=== PATIENT | female | born 1935 | race Caucasian/White ===

== ENCOUNTER 2021-12-14 13:26 | Emergency (ER) | payer MEDICARE, BC ==
[~2021-12-14] VITALS: Ht 160 cm; Wt 63.5 kg
[2021-12-14] MEDS ORDERED: ACETAMINOPHEN 325 MG TABLET PO ONE (13:30)
--- NOTE | 2021-12-14 14:24 | NUR ---
DR MARQUEZ AT BEDSIDE FOR REEVALUATION. PT REMAINS AWAKE AND ALERT.
[2021-12-14] MEDS ORDERED: ACETAMINOPHEN 325 MG TABLET ONE (14:27)
--- NOTE | 2021-12-14 14:29 | NUR ---
PT MADICATED FOR PAIN PER MD ORDER.
--- NOTE | 2021-12-14 16:04 | NUR ---
PT HAS DECIDED TO GO AGAINST MEDICAL ADVICE AT THIS TIME; HAS BEEN WAITING FOR CT SCAN RESULT BUT IS NOW UNWILLING TO, AND INSISTED TO LEAVE,AND BE CALLED INSTEAD IF ANYTHING SERIOUS COMES UP. DR MARQUEZ SPOKE WITH PATIENT DIRECTLY RE IMPLICATION OF LIVING AGAINST MEDICAL ADVISE. PT AMBULATING WITHOUT DIFFICULTY.
[2021-12-14 16:06] VITALS: BP 140/77
== END 2021-12-14 15:45 | disposition left against medical advice (07) ==
LOC: ER 13:26
DX: M54.50 Low back pain, unspecified (principal); N63.0 Unspecified lump in unspecified breast; Z91.018 Allergy to other foods; I10 Essential (primary) hypertension; Z91.81 History of falling
CPT/HCPCS: A4663

== ENCOUNTER 2024-02-25 22:52 | Inpatient (IN) | payer MEDICARE, BC ==
[~2024-02-25] VITALS: Ht 162.6 cm; Wt 56.7 kg
[2024-02-25 23:35] LABS: BASOPHILS % (AUTO) 0.2 % (0.0-2.0); HEMATOCRIT 37.1 % (31.2-41.9); HEMOGLOBIN 12.4 g/dL (10.9-14.3); LYMPHOCYTES # (AUTO) 0.5 K/uL (0.8-4.8); LYMPHOCYTES % (AUTO) 3.6 % (20.5-51.5); MEAN CORPUSCULAR HEMOGLOBIN 30.1 uug (24.7-32.8); MEAN CORPUSCULAR HGB CONC 34 g/dL (32.3-35.6); MEAN CORPUSCULAR VOLUME 89.9 fL (75.5-95.3); MONOCYTES # (AUTO) 0.8 K/uL (0.1-1.30); MONOCYTES % (AUTO) 5.8 % (0.0-11.0); NEUTROPHILS # (AUTO) 12.1 K/uL (1.8-8.9); NEUTROPHILS % (AUTO) 90.4 % (38.5-71.5); PLATELET COUNT (AUTO) 230 K/uL (179-408); RED BLOOD CELL COUNT(AUTO) 4.13 MIL/uL (3.63-4.92); RED CELL DISTRIBUTION WIDTH 14.6 % (12.3-17.7); WHITE BLOOD COUNT (AUTO) 13.4 K/uL (3.8-11.8)
[2024-02-25] MEDS: IV NORMAL SALINE 1000 ML BAG IV ONE (23:35)
[2024-02-26] LABS: ALANINE AMINOTRANSFERASE 39 U/L (14-59); ALBUMIN 2.9 g/dL (3.4-5.0); ALKALINE PHOSPHATASE 71 U/L (50-136); ASPARTATE AMINOTRANSFERASE 56 U/L (15-37); BILIRUBIN,TOTAL 0.8 mg/dL (0.2-1.0); CARBON DIOXIDE 29 mmol/L (21-32); CHLORIDE 97 mmol/L (98-107); CREATINE KINASE, TOTAL 1288 U/L (26-192); CREATININE 0.7 mg/dL (0.6-1.3); GLUCOSE 126 mg/dL (74-106); POTASSIUM 3.7 mmol/L (3.5-5.1); SODIUM SERUM 133 mmol/L (136-145); TOTAL PROTEIN, SERUM 6.9 g/dL (6.4-8.2); UREA NITROGEN, BLOOD 23 mg/dL (7-18)
[2024-02-26] MEDS ORDERED: IV NORMAL SALINE 250 ML IV ONE (00:59)
[2024-02-26] MEDS ORDERED: SWABABLE VALVE TRANSFER SET EA MC ONE (00:59)
[2024-02-26] MEDS ORDERED: IOHEXOL 350 100 ML INFUS..BTL ONE (01:01)
[2024-02-26] MEDS ORDERED: NITROGLYCERIN OINT 1 GM PACKET TP ONE (01:09)
[2024-02-26] MEDS ORDERED: ASPIRIN 81 MG TAB.CHEW ONE (01:09)
[2024-02-26] MEDS: NITROGLYCERIN OINT 1 GM PACKET TP ONE (01:15)
[2024-02-26] MEDS: ASPIRIN 81 MG TAB.CHEW PO ONE (01:25)
[2024-02-26] MEDS ORDERED: METOPROLOL TARTRATE 5 MG/5 ML VIAL IVP ONE (02:42)
[2024-02-26] MEDS: METOPROLOL TARTRATE 5 MG/5 ML VIAL IVP ONE ×2 (02:45→03:52)
[2024-02-26] MEDS ORDERED: MECO10005 PO (02:57)
[2024-02-26] MEDS ORDERED: CELE100C PO (02:57)
[2024-02-26] MEDS ORDERED: LISI10TA29 PO (02:57)
[2024-02-26] MEDS ORDERED: PRIM50TA27 PO (02:57)
[2024-02-26] MEDS ORDERED: GABA600T12 PO (02:57)
[2024-02-26] MEDS ORDERED: METO-357 PO (02:57)
[2024-02-26] MEDS ORDERED: ROSU10TA2 PO (02:57)
[2024-02-26] MEDS ORDERED: ACETAMINOPHEN 325 MG TABLET PO PRN (03:00)
[2024-02-26] MEDS ORDERED: ONDANSETRON 4 MG/2 ML VIAL IV PRN (03:00)
[2024-02-26] MEDS ORDERED: MAGNESIUM HYDROXIDE 30 ML LIQUID UDC PO PRN (03:00)
[2024-02-26] MEDS ORDERED: REMEDY ESSENTIAL ZINC PASTE 113 GM TP PRN (03:00)
[2024-02-26 03:25] LABS: *BILIRUBIN,URIN NEGATIVE (NEGATIVE); *BLOOD, URINE 2+ (NEGATIVE); *CLARITY,URINE CLEAR (CLEAR); *COLOR,URINE DARK YELLOW (YELLOW); *PROTEIN,URINE NEGATIVE (NEGATIVE); UGLUCOSE NEGATIVE (NEGATIVE)
[2024-02-26 03:26] LABS: *KETONES,URINE 2+ (NEGATIVE); LEUKOCYTE ESTERASE ,URINE NEGATIVE (NEGATIVE); NITRITE, URINE NEGATIVE (NEGATIVE)
[2024-02-26 03:29] LABS: BACTERIA,URINE FEW /HPF (NONE SEEN); SQUAMOUS EPITHELIAL CELL,UR FEW /HPF (NONE SEEN); WBC,URINE NONE SEEN /HPF (0-3)
[2024-02-26 03:30] LABS: MUCUS,URINE FEW /LPF (0-FEW); TRICHOMONAS,URINE NONE SEEN /HPF (NONE SEEN); YEAST,URINE NONE SEEN /HPF (NONE SEEN)
[2024-02-26 05:56] VITALS: BP 151/76; TEMP 98; O2SAT 100
[2024-02-26 07:24] VITALS: BP 153/100; TEMP 98.1; O2SAT 96
[2024-02-26 07:34] LABS: BASOPHILS % (AUTO) 0.4 % (0.0-2.0); HEMATOCRIT 33.2 % (31.2-41.9); HEMOGLOBIN 11.5 g/dL (10.9-14.3); LYMPHOCYTES # (AUTO) 1.1 K/uL (0.8-4.8); MEAN CORPUSCULAR HEMOGLOBIN 30.9 uug (24.7-32.8); MEAN CORPUSCULAR HGB CONC 35 g/dL (32.3-35.6); MEAN CORPUSCULAR VOLUME 89.6 fL (75.5-95.3); MONOCYTES # (AUTO) 0.9 K/uL (0.1-1.30); MONOCYTES % (AUTO) 9.1 % (0.0-11.0); NEUTROPHILS # (AUTO) 7.7 K/uL (1.8-8.9); NEUTROPHILS % (AUTO) 79.5 % (38.5-71.5); PLATELET COUNT (AUTO) 221 K/uL (179-408); RED CELL DISTRIBUTION WIDTH 14.4 % (12.3-17.7); WHITE BLOOD COUNT (AUTO) 9.7 K/uL (3.8-11.8)
[2024-02-26 07:54] LABS: MAGNESIUM 1.4 mg/dL (1.8-2.4); PHOSPHOROUS 3.3 mg/dL (2.5-4.9)
[2024-02-26 08:01] LABS: DIFFERENTIAL COMMENT 1
[2024-02-26 08:04] LABS: CALCIUM 8.5 mg/dL (8.5-10.1); CARBON DIOXIDE 29 mmol/L (21-32); CHLORIDE 100 mmol/L (98-107); CREATINE KINASE, TOTAL 1188 U/L (26-192); CREATININE 0.5 mg/dL (0.6-1.3); GLUCOSE 105 mg/dL (74-106); POTASSIUM 3.5 mmol/L (3.5-5.1); SODIUM SERUM 135 mmol/L (136-145); UREA NITROGEN, BLOOD 19 mg/dL (7-18)
[2024-02-26 08:27] LABS: THYROID STIMULATING HORMONE 1.476 mIU/mL (0.358-3.740)
[2024-02-26] MEDS: ASPIRIN EC 81 MG TABLET.DR PO SCH (09:05)
[2024-02-26] MEDS: PANTOPRAZOLE SODIUM 40 MG VIAL IV SCH (09:05)
[2024-02-26] MEDS: MAGNESIUM OXIDE 400 MG TABLET PO SCH (11:24)
[2024-02-26] MEDS: ENOXAPARIN SODIUM 40 MG/0.4 ML DISP.SYRIN SQ SCH (11:26)
[2024-02-26 11:55] VITALS: BP 115/58; TEMP 98; O2SAT 96
[2024-02-26] MEDS: IV NS 1000 ML 1,000 ML IV PRN (13:44)
[2024-02-26 15:55] VITALS: BP 137/62; TEMP 98.5; O2SAT 94
[2024-02-26] MEDS ORDERED: CYAN100085 PO (17:44)
[2024-02-26] MEDS: LISINOPRIL 10 MG TABLET PO SCH (17:53)
[2024-02-26] MEDS: CEFTRIAXONE 1 G in IV DEXTROSE 5% 50 ML IV SCH (18:11)
[2024-02-26 19:00] VITALS: BP 152/67; TEMP 97.5; O2SAT 95
[2024-02-26] MEDS: GABAPENTIN 300 MG CAPSULE PO SCH (20:28)
[2024-02-26] MEDS: PRIMIDONE 50 MG TABLET PO SCH (20:28)
[2024-02-26] MEDS: ATORVASTATIN 20 MG TABLET PO SCH (20:28)
[2024-02-26] MEDS ORDERED: Medication Not On Formulary EA (Gabapentin 600 MG) PO SCH (21:00)
[2024-02-27] VITALS: BP 155/68; TEMP 97.8; O2SAT 97
[2024-02-27 04:00] VITALS: BP 165/62; TEMP 98.1; O2SAT 95
[2024-02-27] MEDS: PANTOPRAZOLE SODIUM 40 MG TABLET.DR PO SCH (06:22)
[2024-02-27 07:08] LABS: BASOPHILS % (AUTO) 0.4 % (0.0-2.0); EOSINOPHILS # (AUTO) 0.1 K/uL (0.0-0.7); HEMOGLOBIN 10.5 g/dL (10.9-14.3); LYMPHOCYTES % (AUTO) 11.7 % (20.5-51.5); MEAN CORPUSCULAR HEMOGLOBIN 30.5 uug (24.7-32.8); MEAN CORPUSCULAR HGB CONC 34 g/dL (32.3-35.6); MEAN CORPUSCULAR VOLUME 89.9 fL (75.5-95.3); MONOCYTES # (AUTO) 0.9 K/uL (0.1-1.30); MONOCYTES % (AUTO) 10.9 % (0.0-11.0); NEUTROPHILS # (AUTO) 6.6 K/uL (1.8-8.9); PLATELET COUNT (AUTO) 188 K/uL (179-408); RED BLOOD CELL COUNT(AUTO) 3.44 MIL/uL (3.63-4.92); RED CELL DISTRIBUTION WIDTH 14.4 % (12.3-17.7); WHITE BLOOD COUNT (AUTO) 8.6 K/uL (3.8-11.8)
[2024-02-27 07:12] LABS: DIFFERENTIAL COMMENT 1
[2024-02-27 07:19] LABS: CALCIUM 8.3 mg/dL (8.5-10.1); CARBON DIOXIDE 29 mmol/L (21-32); CHLORIDE 101 mmol/L (98-107); CREATINE KINASE, TOTAL 829 U/L (26-192); CREATININE 0.6 mg/dL (0.6-1.3); GLUCOSE 88 mg/dL (74-106); POTASSIUM 3.4 mmol/L (3.5-5.1); SODIUM SERUM 136 mmol/L (136-145); UREA NITROGEN, BLOOD 17 mg/dL (7-18)
[2024-02-27] MEDS ORDERED: POTASSIUM CHLORIDE 20 MEQ POWDER PACKET GT ONE (07:45)
[2024-02-27 08:00] VITALS: BP 148/77; TEMP 97.9; O2SAT 98
[2024-02-27] MEDS: POTASSIUM CHLORIDE 20 MEQ TAB.PRT.SR PO ONE (08:58)
[2024-02-27] MEDS: CYANOCOBALAMIN 1,000 MCG TABLET PO SCH (08:58)
[2024-02-27] MEDS: METOPROLOL SUCCINATE XL 50 MG TAB.SR.24H PO SCH (08:58)
[2024-02-27] MEDS ORDERED: Medication Not On Formulary EA (Rosuvastatin Calcium (Crestor) 10 MG) PO SCH (09:00)
[2024-02-27] MEDS ORDERED: MECOBALAMIN PO SCH (09:00)
[2024-02-27 16:00] VITALS: BP 163/71; TEMP 98.1; O2SAT 96
[2024-02-27 20:00] VITALS: BP 156/71; TEMP 97.9; O2SAT 96
[2024-02-27] MEDS: CELECOXIB 100 MG CAPSULE PO PRN (23:30)
[2024-02-28 06:00] VITALS: BP 151/75; TEMP 98; O2SAT 98
[2024-02-28 07:36] LABS: BASOPHILS % (AUTO) 0.6 % (0.0-2.0); EOSINOPHILS # (AUTO) 0.1 K/uL (0.0-0.7); EOSINOPHILS % (AUTO) 1.6 % (0.0-7.0); HEMATOCRIT 29.5 % (31.2-41.9); HEMOGLOBIN 10.1 g/dL (10.9-14.3); LYMPHOCYTES # (AUTO) 1.1 K/uL (0.8-4.8); LYMPHOCYTES % (AUTO) 16.2 % (20.5-51.5); MEAN CORPUSCULAR HEMOGLOBIN 30.9 uug (24.7-32.8); MEAN CORPUSCULAR HGB CONC 34 g/dL (32.3-35.6); MEAN CORPUSCULAR VOLUME 90.7 fL (75.5-95.3); MONOCYTES # (AUTO) 0.8 K/uL (0.1-1.30); MONOCYTES % (AUTO) 11.4 % (0.0-11.0); NEUTROPHILS # (AUTO) 4.9 K/uL (1.8-8.9); NEUTROPHILS % (AUTO) 70.2 % (38.5-71.5); PLATELET COUNT (AUTO) 185 K/uL (179-408); RED BLOOD CELL COUNT(AUTO) 3.25 MIL/uL (3.63-4.92); RED CELL DISTRIBUTION WIDTH 14.7 % (12.3-17.7)
[2024-02-28 07:45] LABS: DIFFERENTIAL COMMENT 1
[2024-02-28 08:01] LABS: CALCIUM 8.7 mg/dL (8.5-10.1); CARBON DIOXIDE 32 mmol/L (21-32); CHLORIDE 103 mmol/L (98-107); CREATININE 0.7 mg/dL (0.6-1.3); GLUCOSE 89 mg/dL (74-106); POTASSIUM 3.9 mmol/L (3.5-5.1); SODIUM SERUM 139 mmol/L (136-145); UREA NITROGEN, BLOOD 15 mg/dL (7-18)
[2024-02-28 08:05] LABS: MAGNESIUM 1.6 mg/dL (1.8-2.4); PHOSPHOROUS 3.1 mg/dL (2.5-4.9)
[2024-02-28] MEDS: MAGNESIUM SULFATE/D5W 100 ML IV SCH (08:37)
[2024-02-28 11:39] VITALS: BP 139/64; TEMP 98.2; O2SAT 95
[2024-02-28 16:00] VITALS: BP 144/65; TEMP 97.9; O2SAT 94
[2024-02-28 19:00] VITALS: BP 168/62; TEMP 98.6; O2SAT 95
[2024-02-28] MEDS: hydrALAZINE HCL 25 MG TABLET PO PRN (21:51)
[2024-02-29 06:00] VITALS: BP 157/51; TEMP 97.8; O2SAT 95
[2024-02-29 11:36] VITALS: BP_SYST 117; BP_SYST 137; BP_DIAS 51; BP_DIAS 57; TEMP 97.6; TEMP 98.6; O2SAT 93; O2SAT 96
[2024-02-29] MEDS ORDERED: ENOX40DI SQ (12:34)
[2024-02-29] MEDS ORDERED: ASPI81TA31 PO (12:34)
[2024-02-29] MEDS ORDERED: CEFT1VIA15 IV (12:34)
[2024-02-29] MEDS ORDERED: PANT40TA49 PO (12:34)
[2024-02-29] MEDS ORDERED: NORM50IV2 IV (12:36)
[2024-02-29] MEDS ORDERED: ATOR20TA PO (14:34)
[2024-02-29] MEDS ORDERED: HYDR-894 PO (14:34)
[2024-02-29] MEDS ORDERED: MAGN400O6 PO (14:34)
[2024-02-29] MEDS ORDERED: DIME118C3 TP (14:34)
[2024-02-29] MEDS ORDERED: ACET-2154 PO (14:35)
[2024-02-29] MEDS ORDERED: CYAN-51 PO (14:37)
== END 2024-02-29 12:21 | DRG 558 ==
LOC: ER 22:54 → TELE3 02-26 02:45 → MEDSURG3 02-27 09:20
PROVIDERS: ATTEND Student in an Organized Health Care Education/Training Program
DX: M62.82 Rhabdomyolysis (principal); E87.1 Hypo-osmolality and hyponatremia; E44.0 Moderate protein-calorie malnutrition; L03.116 Cellulitis of left lower limb; E86.0 Dehydration; I35.0 Nonrheumatic aortic (valve) stenosis; E83.42 Hypomagnesemia; E78.5 Hyperlipidemia, unspecified; M85.832 Other specified disorders of bone density and structure, left forearm; R94.31 Abnormal electrocardiogram [ECG] [EKG]; S50.02XA Contusion of left elbow, initial encounter; W01.0XXA Fall on same level from slipping, tripping and stumbling without subsequent striking against object, initial encounter; Y93.E9 Activity, other interior property and clothing maintenance; Y92.015 Private garage of single-family (private) house as the place of occurrence of the external cause; F03.90 Unspecified dementia, unspecified severity, without behavioral disturbance, psychotic disturbance, mood disturbance, and anxiety; I10 Essential (primary) hypertension; R60.9 Edema, unspecified; R79.89 Other specified abnormal findings of blood chemistry
CPT/HCPCS: 36415; 70450; 70486; 71045; 71275; 72125; 72131; 72170; 73080; 83735; 84100; 84443; 84484; 85025; 93307; A4606; A4663; G0378; J0696; J1650; J2470; J3475; J3490; J7040; Q9967

== ENCOUNTER 2024-02-28 14:13 | Inpatient (IN) | payer MEDICARE, BC ==
[~2024-02-28] VITALS: Ht 162.6 cm; Wt 59.4 kg
[~2024-02-28 14:13] MED LIST: CELE100C PO; CYAN100085 PO; GABA600T12 PO; LISI10TA29 PO; METO-357 PO; PRIM50TA27 PO; ROSU10TA2 PO
[2024-02-29] MEDS ORDERED: PANT40TA49 PO (12:34)
[2024-02-29] MEDS ORDERED: CEFT1VIA15 IV (12:34)
[2024-02-29] MEDS ORDERED: ENOX40DI SQ (12:34)
[2024-02-29] MEDS ORDERED: ASPI81TA31 PO (12:34)
[2024-02-29] MEDS ORDERED: NORM50IV2 IV (12:36)
[2024-02-29] MEDS ORDERED: HYDR-894 PO (14:34)
[2024-02-29] MEDS ORDERED: MAGN400O6 PO (14:34)
[2024-02-29] MEDS ORDERED: ATOR20TA PO (14:34)
[2024-02-29] MEDS ORDERED: DIME118C3 TP (14:34)
[2024-02-29] MEDS ORDERED: ACET-2154 PO (14:35)
[2024-02-29] MEDS ORDERED: CYAN-51 PO (14:37)
[2024-02-29 14:38] VITALS: BP 114/60; TEMP 98; O2SAT 95
[2024-02-29] MEDS ORDERED: ACETAMINOPHEN 325 MG TABLET-SA PATIENTS-PAIN ONLY PO PRN (16:15)
[2024-02-29] MEDS ORDERED: REMEDY ESSENTIAL ZINC PASTE 113 GM TOP PRN (16:15)
[2024-02-29] MEDS ORDERED: MAGNESIUM HYDROXIDE 30 ML LIQUID UDC PO PRN (16:15)
[2024-02-29] MEDS: LISINOPRIL 10 MG TABLET PO SCH (17:45)
[2024-02-29 19:42] VITALS: BP 148/55; TEMP 98.2; O2SAT 96
[2024-02-29] MEDS: ATORVASTATIN 20 MG TABLET PO SCH (20:21)
[2024-02-29] MEDS: PRIMIDONE 50 MG TABLET PO SCH (20:23)
[2024-02-29] MEDS: GABAPENTIN 300 MG CAPSULE PO SCH (20:23)
[2024-02-29] MEDS ORDERED: Medication Not On Formulary EA (Gabapentin 600 MG) PO SCH (21:00)
[2024-03-01 06:05] VITALS: BP 157/77; TEMP 98; O2SAT 94
[2024-03-01] MEDS: PANTOPRAZOLE SODIUM 40 MG TABLET.DR PO SCH (06:15)
[2024-03-01] MEDS: ASPIRIN 81 MG TAB.CHEW PO SCH (09:04)
[2024-03-01] MEDS: CYANOCOBALAMIN 1,000 MCG TABLET PO SCH (09:05)
[2024-03-01] MEDS: METOPROLOL SUCCINATE XL 50 MG TAB.SR.24H PO SCH (09:05)
[2024-03-01 15:36] VITALS: BP 143/59; TEMP 98.8; O2SAT 96
[2024-03-01 20:00] VITALS: BP 121/58; TEMP 98.3; O2SAT 95
[2024-03-01] MEDS: MELATONIN 3 MG TABLET PO PRN (20:34)
[2024-03-01] MEDS: ACETAMINOPHEN 325 MG TABLET PO PRN (20:42)
[2024-03-02 06:00] VITALS: BP 133/51; TEMP 98.3; O2SAT 99
[2024-03-02 16:04] VITALS: BP 146/62; TEMP 98.1; O2SAT 91
[2024-03-02] MEDS: hydrALAZINE HCL 25 MG TABLET PO PRN (20:15)
[2024-03-02 20:41] VITALS: BP_SYST 16; BP_SYST 167; BP_DIAS 58; TEMP 98.3; O2SAT 94
[2024-03-02 22:24] VITALS: BP 144/70
[2024-03-03 06:00] VITALS: BP 147/48; TEMP 98.3; O2SAT 97
[2024-03-03] MEDS: ENSURE ENLIVE (VAN) 240 ML LIQUID PO SCH (17:27)
[2024-03-03] MEDS: GABAPENTIN 300 MG CAPSULE PO SCH (17:29)
[2024-03-03 21:11] VITALS: BP 157/54; TEMP 97.9; O2SAT 97
[2024-03-04 06:30] VITALS: BP 159/56; TEMP 97.6; O2SAT 99
[2024-03-04 16:36] VITALS: BP 159/58; TEMP 97.8; O2SAT 98
[2024-03-04 20:00] VITALS: BP 128/47; TEMP 98.2; O2SAT 98
[2024-03-05 05:54] VITALS: BP 130/52; TEMP 98; O2SAT 99
[2024-03-05 09:51] VITALS: BP 132/67; TEMP 97; O2SAT 97
[2024-03-05 20:16] VITALS: BP 140/49; TEMP 98.1; O2SAT 95
[2024-03-06 09:35] VITALS: BP 127/48; TEMP 97.4; O2SAT 97
[2024-03-06 20:00] VITALS: BP 124/47; TEMP 98.4; O2SAT 97
[2024-03-07 06:14] VITALS: BP 130/56; TEMP 97.6; O2SAT 98
[2024-03-07 16:30] VITALS: BP 152/74; TEMP 98.7
[2024-03-07 19:57] VITALS: BP 127/56; TEMP 98.7; O2SAT 95
[2024-03-07] MEDS: CELECOXIB 100 MG CAPSULE PO PRN (20:43)
[2024-03-08 06:00] VITALS: BP 138/52; TEMP 98.1; O2SAT 95
[2024-03-08 16:45] VITALS: BP 110/67; TEMP 97.8
[2024-03-08 19:17] VITALS: BP 152/74; TEMP 98.7
[2024-03-08 22:00] VITALS: BP 124/47; TEMP 98.6; O2SAT 96
[2024-03-09 06:00] VITALS: BP 134/46; TEMP 97.8; O2SAT 98
[2024-03-09 10:13] VITALS: BP 120/50; TEMP 97.4; O2SAT 97
[2024-03-09 16:31] VITALS: BP 128/46; TEMP 97.5; O2SAT 94
[2024-03-10 07:23] VITALS: BP 171/59; TEMP 98.2; O2SAT 97
[2024-03-10 16:17] VITALS: BP 139/61; TEMP 98; O2SAT 98
[2024-03-10 20:00] VITALS: BP 141/54; TEMP 98.1; O2SAT 96
[2024-03-11 06:00] VITALS: BP 142/58; TEMP 98; O2SAT 94
[2024-03-11 16:00] VITALS: BP 123/51; TEMP 97.8; O2SAT 98
[2024-03-11 20:00] VITALS: BP 127/63; TEMP 98.2; O2SAT 94
[2024-03-12 06:00] VITALS: BP 111/54; TEMP 98.1; O2SAT 95
[2024-03-12 08:04] LABS: BASOPHILS # (AUTO) 0.1 K/UL (0.0-0.2); BASOPHILS % (AUTO) 0.9 % (0.0-2.0); EOSINOPHILS # (AUTO) 0.3 K/uL (0.0-0.7); EOSINOPHILS % (AUTO) 4.7 % (0.0-7.0); HEMATOCRIT 29.1 % (31.2-41.9); LYMPHOCYTES % (AUTO) 15.4 % (20.5-51.5); MEAN CORPUSCULAR HEMOGLOBIN 31.8 uug (24.7-32.8); MEAN CORPUSCULAR HGB CONC 34 g/dL (32.3-35.6); MEAN CORPUSCULAR VOLUME 92.3 fL (75.5-95.3); MONOCYTES # (AUTO) 0.7 K/uL (0.1-1.30); MONOCYTES % (AUTO) 10.4 % (0.0-11.0); NEUTROPHILS # (AUTO) 4.4 K/uL (1.8-8.9); NEUTROPHILS % (AUTO) 68.6 % (38.5-71.5); PLATELET COUNT (AUTO) 211 K/uL (179-408); RED BLOOD CELL COUNT(AUTO) 3.15 MIL/uL (3.63-4.92); RED CELL DISTRIBUTION WIDTH 14.9 % (12.3-17.7); WHITE BLOOD COUNT (AUTO) 6.4 K/uL (3.8-11.8)
[2024-03-12 08:08] VITALS: BP 115/54
[2024-03-12 08:13] LABS: DIFFERENTIAL COMMENT 1
[2024-03-12 08:19] LABS: CALCIUM 8.9 mg/dL (8.5-10.1); CARBON DIOXIDE 34 mmol/L (21-32); CHLORIDE 100 mmol/L (98-107); CREATININE 0.7 mg/dL (0.6-1.3); GLUCOSE 89 mg/dL (74-106); MAGNESIUM 1.9 mg/dL (1.8-2.4); PHOSPHOROUS 4.4 mg/dL (2.5-4.9); POTASSIUM 4.5 mmol/L (3.5-5.1); SODIUM SERUM 136 mmol/L (136-145); UREA NITROGEN, BLOOD 24 mg/dL (7-18)
== END 2024-03-12 14:11 | disposition home health service (06) | DRG 557 ==
LOC: UNDOADMIN 02-29 11:53 → SA1 02-29 11:53 → UNDOADMIN 02-29 12:35 → SA1 02-29 12:35 → UNDOADMIN 02-29 12:44 → SA1 02-29 12:44
PROVIDERS: ADMIT Physical Medicine & Rehabilitation Pain Medicine; ATTEND Physical Medicine & Rehabilitation Pain Medicine
DX: M62.82 Rhabdomyolysis (principal); I21.A1 Myocardial infarction type 2; E44.0 Moderate protein-calorie malnutrition; L03.116 Cellulitis of left lower limb; Z91.81 History of falling; E78.5 Hyperlipidemia, unspecified; E88.09 Other disorders of plasma-protein metabolism, not elsewhere classified; I10 Essential (primary) hypertension; I89.0 Lymphedema, not elsewhere classified; R26.89 Other abnormalities of gait and mobility; M19.90 Unspecified osteoarthritis, unspecified site; S51.012A Laceration without foreign body of left elbow, initial encounter; W18.30XA Fall on same level, unspecified, initial encounter; Y92.231 Patient bathroom in hospital as the place of occurrence of the external cause; E86.0 Dehydration; I95.9 Hypotension, unspecified; R79.89 Other specified abnormal findings of blood chemistry; R74.8 Abnormal levels of other serum enzymes; Z91.018 Allergy to other foods; R53.1 Weakness
CPT/HCPCS: 36415; 73080; 83735; 84100; 85025; 97535-GO-CO; A4663

== ENCOUNTER 2024-06-05 17:16 | Emergency (ER) | payer MEDICARE, BC ==
[~2024-06-05] VITALS: Ht 162.6 cm; Wt 59.0 kg
[~2024-06-05 17:16] MED LIST changes: +ACET-2154 PO; +ASPI81TA31 PO; +ATOR20TA PO; +CYAN-51 PO; -CYAN100085 PO; +DIME118C3 TP; +HYDR-894 PO; +MAGN400O6 PO; +PANT40TA49 PO; -ROSU10TA2 PO
[2024-06-05 17:33] VITALS: O2SAT 97
[2024-06-05] MEDS ORDERED: LIDOCAINE 1%-EPI 1:100,000 20 ML VIAL ONE (18:05)
[2024-06-05] MEDS ORDERED: TDAP DIPH,PERTUSS,TET VAC/PF 0.5 ML DISP.SYRIN IM ONE (18:22)
[2024-06-05] MEDS: TDAP DIPH,PERTUSS,TET VAC/PF 0.5 ML DISP.SYRIN IM ONE (18:28)
== END 2024-06-05 18:30 | disposition home or self-care (01) ==
LOC: ER 17:16
DX: S01.01XA Laceration without foreign body of scalp, initial encounter (principal); I25.2 Old myocardial infarction; Z79.82 Long term (current) use of aspirin; Z79.899 Other long term (current) drug therapy; Z60.2 Problems related to living alone; W01.0XXA Fall on same level from slipping, tripping and stumbling without subsequent striking against object, initial encounter; Y93.89 Activity, other specified; Y92.89 Other specified places as the place of occurrence of the external cause; Y99.8 Other external cause status
CPT/HCPCS: 99283; 12001; 90715; 90471; J3490; A4606; A4663